=== PATIENT | female | born 2000 | race Caucasian/White ===

== ENCOUNTER 2020-02-10 18:32 | Emergency (ER) | payer SELFPAY ==
--- NOTE | 2020-02-10 18:50 | ER Document Report ---
HPI - HPI Time Seen by Provider: 02/10/20 18:40 Onset: Other - This is a 20-year-old female who was helping her boyfriend work on his car was struck to the right long finger by the strut has discomfort to the tuft area. No open wound. Pain Level: 5 Associated Symptoms: None Exacerbated by: Denies - MUSCULOSKELETAL Musculoskeletal: REPORTS: Extremity pain Past Medical History - General Information source: Patient - Social History Smoking Status: Never Smoker Cigarette use (# per day): No Chew tobacco use (# tins/day): No Smoking Education Provided: No Frequency of alcohol use: Occasional Drug Abuse: None Family History: None Patient has suicidal ideation: No Patient has homicidal ideation: No Past Surgical History: Reports: Hx Oral Surgery - wisdom teeth Vertical Provider Document - CONSTITUTIONAL Agree With Documented VS: Yes - INFECTION CONTROL TRAVEL OUTSIDE OF THE [place] IN LAST 30 DAYS: No - HEENT HEENT: Atraumatic - NECK Neck: Normal Inspection - RESPIRATORY Respiratory: Breath Sounds Normal - CARDIOVASCULAR Cardiovascular: Regular Rate, Regular Rhythm Pulses: Normal: Brachial, Radial, Carotid - GI/ABDOMEN Gastrointestinal: Abdomen Soft, Abdomen Non-Tender - REPRODUCTIVE Female Genitalia: Normal Inspection - BACK Back: Normal Inspection - NEURO Level of Consciousness: Awake, Alert, Appropriate Course - Vital Signs Vital signs: Temp Pulse Resp BP Pulse Ox 98 F 91 16 120/77 98 02/10/20 18:36 02/10/20 18:36 02/10/20 18:36 02/10/20 18:36 02/10/20 18:36 - Diagnostic Test Radiology reviewed: Image reviewed, Reports reviewed Radiology results interpreted by me: 02/10/20 19:26 Hand X-Ray 02/10/20 18:42 IMPRESSION: No evidence of acute osseous injury. Discharge - Discharge Clinical Impression: Contusion Qualifiers: Encounter type: initial encounter Contusion area: hand Disposition: HOME, SELF-CARE Instructions: Contusion ([facility]) Additional Instructions: Ice to affected area 4-5 times a day. Must follow-up with PMD in 3 to 4 days. Tylenol Motrin [id number] for pain relief.
--- NOTE | 2020-02-10 19:13 | RADIOLOGY REPORT (SQ) ---
EXAM DESCRIPTION: HAND RIGHT 3 VIEWS COMPLETED DATE/TIME: 02/10/2020 6:59 pm REASON FOR STUDY: long finger trauma COMPARISON: None. EXAM PARAMETERS: NUMBER OF VIEWS: Three views. TECHNIQUE: AP, lateral and oblique radiographic images acquired of the right hand. LIMITATIONS: None. FINDINGS: MINERALIZATION: Normal. BONES: No acute fracture or dislocation. No worrisome bone lesions. JOINTS: No effusions. SOFT TISSUES: No soft tissue swelling. No foreign body. OTHER: No other significant finding. IMPRESSION: No evidence of acute osseous injury. TECHNICAL DOCUMENTATION: JOB ID: [id number] 2010 [employer]- All Rights Reserved Reading location - IP/workstation name: [email or web address]
[2020-02-10] MEDS ORDERED: HYDROCODONE/ACETAMINOPHEN 5-325 MG (6 TAB/ER DISP) PO PRN (19:28)
[2020-02-10 19:42] VITALS: BP 102/65
== END 2020-02-10 19:52 | disposition home or self-care (01) ==
LOC: ER 18:32
DX: S60.031A Contusion of right middle finger without damage to nail, initial encounter (principal); M79.644 Pain in right finger(s); W22.8XXA Striking against or struck by other objects, initial encounter
CPT/HCPCS: 99283